=== PATIENT | female | born 1980 | race Caucasian/White ===

== ENCOUNTER 2022-09-15 14:27 | Day surgery (SDC) | payer MEDICARE ==
[2022-09-15] MEDS ORDERED: Decadron 4 MG INJ IV ONE (14:28)
[2022-09-15] MEDS ORDERED: LIDOCAINE HCL 1% 50 MG/5 ML VL PF IJ ONE (14:28)
[2022-09-15] MEDS ORDERED: Depo-Medrol 40 MG/ML IM ONE (14:28)
[2022-09-15] MEDS ORDERED: Sodium Chloride 0.9(Preservative Free) 10 ML IJ ONE (14:28)
[2022-09-15 14:45] LABS: HCG URINE TEST NEGATIVE (NEGATIVE)
[2022-09-15] MEDS ORDERED: Lactated Ringers 1,000 ML IV ONE (15:37)
[2022-09-15] MEDS ORDERED: DIPRIVAN 200 MG/20 ML IV ONE ×2 (15:39→15:51)
--- NOTE | 2022-09-15 16:42 | XRAY ---
Indication: Left piriformis injection. Intraoperative fluoroscopy provided for 8 seconds. Single digital spot image submitted for interpretation demonstrates posterior needle tip projecting over the left piriformis. Small amount of contrast injected for needle tip placement. Correlate with intraoperative findings/report.
--- NOTE | 2022-09-15 16:43 | XRAY ---
Indication: Left L4-S1 transforaminal RIDGE. Intraoperative fluoroscopy provided for 39 seconds. 4 digital spot image submitted for interpretation demonstrates posterior needle tips projecting over the expected left L4 and L5 nerve roots. Small amount of contrast injected for needle tip placement. Correlate with intraoperative findings/report.
--- NOTE | 2022-09-15 17:03 | XRAY ---
8 seconds of fluoroscopy was used in surgery for a left piriformis injection.
--- NOTE | 2022-09-15 17:03 | XRAY ---
39 seconds of fluoroscopy was used in surgery for a left L4-S1 transforaminal RIDGE.
== END 2022-09-15 16:10 | disposition home or self-care (01) ==
LOC: SDC-PAIN 14:27
PROVIDERS: ATTEND Psychiatry & Neurology Pain Medicine
DX: M54.16 Radiculopathy, lumbar region (principal); M79.18 Myalgia, other site; Z79.899 Other long term (current) drug therapy
CPT/HCPCS: 20552; 64483; 64484; 72100; 72170; 77002; 77003; 81025; J1030; J1100; J1642; J2001; J2704; Q9966

== ENCOUNTER 2023-01-04 11:41 | Day surgery (SDC) | payer MEDICARE ==
[2023-01-04] MEDS ORDERED: Depo-Medrol 40 MG/ML IM ONE (11:42)
[2023-01-04] MEDS ORDERED: Sodium Chloride 0.9(Preservative Free) 10 ML IJ ONE (11:42)
[2023-01-04 12:26] LABS: HCG URINE TEST NEGATIVE (NEGATIVE)
[2023-01-04] MEDS ORDERED: DIPRIVAN 200 MG/20 ML IV ONE (13:22)
[2023-01-04] MEDS ORDERED: Lactated Ringers 1,000 ML IV ONE (14:34)
--- NOTE | 2023-01-04 15:04 | XRAY ---
Indication: Left L4-S1 transforaminal RIDGE. Intraoperative fluoroscopy provided for 23 seconds. 4 digital spot image submitted for interpretation demonstrates posterior needle tips projecting over the expected left L4 and L5 nerve roots. Small amount of contrast injected for needle tip placement. Correlate with intraoperative findings/report.
--- NOTE | 2023-01-04 16:49 | XRAY ---
23 seconds of fluoroscopy was used in surgery for a left L4-S1 transforaminal RIDGE.
== END 2023-01-04 13:50 | disposition home or self-care (01) ==
LOC: SDC-PAIN 11:41
PROVIDERS: ATTEND Psychiatry & Neurology Pain Medicine
DX: M54.16 Radiculopathy, lumbar region (principal); Z79.899 Other long term (current) drug therapy
CPT/HCPCS: 64483; 64484; 72100; 77003; 81025; J1030; J1642; J2704; Q9966

== ENCOUNTER 2023-06-14 09:32 | Day surgery (SDC) | payer MEDICARE ==
[2023-06-14] MEDS ORDERED: Decadron 4 MG INJ IV ONE (09:33)
[2023-06-14] MEDS ORDERED: Sodium Chloride 0.9(Preservative Free) 10 ML IJ ONE (09:33)
[2023-06-14] MEDS ORDERED: LIDOCAINE HCL 1% 50 MG/5 ML VL PF IJ ONE (09:33)
[2023-06-14 10:26] LABS: HCG URINE TEST NEGATIVE (NEGATIVE)
[2023-06-14] MEDS ORDERED: DIPRIVAN 200 MG/20 ML IV ONE (11:47)
[2023-06-14] MEDS ORDERED: MORPHINE SULFATE 2 MG INJ ONE ×2 (12:36→12:48)
--- NOTE | 2023-06-14 12:59 | XRAY ---
Indication: Left piriformis injection Intraoperative fluoroscopy provided for 9 seconds. Single digital spot image submitted for interpretation demonstrates posterior needle tips projecting over the expected left piriformis. Small amount of contrast injected for needle tip placement. Correlate with intraoperative findings/report.
--- NOTE | 2023-06-14 12:59 | XRAY ---
Indication: Left L4-S1 transforaminal RIDGE Intraoperative fluoroscopy provided for 22 seconds. 4 digital spot image submitted for interpretation demonstrates posterior needle tips projecting over the expected left L4 and L5 nerve roots. Small amount of contrast injected for needle tip placement. Correlate with intraoperative findings/report.
--- NOTE | 2023-06-14 13:21 | XRAY ---
22 seconds of fluoroscopy was used in surgery for a left L4-S1 transforaminal RIDGE.
--- NOTE | 2023-06-14 13:21 | XRAY ---
9 seconds of fluoroscopy was used in surgery for a left piriformis injection.
[2023-06-14] MEDS ORDERED: Lactated Ringers 1,000 ML IV ONE (14:18)
== END 2023-06-14 13:00 | disposition home or self-care (01) ==
LOC: SDC-PAIN 09:32
PROVIDERS: ATTEND Psychiatry & Neurology Pain Medicine
DX: M54.16 Radiculopathy, lumbar region (principal); M79.18 Myalgia, other site
CPT/HCPCS: 20552; 64483; 64484; 72100; 72170; 77002; 77003; 81025; J1100; J1642; J2001; J2270; J2704; Q9966

== ENCOUNTER 2023-11-01 10:56 | Day surgery (SDC) | payer MEDICARE ==
[2023-11-01] MEDS ORDERED: Depo-Medrol 40 MG/ML IM ONE (10:57)
[2023-11-01] MEDS ORDERED: Decadron 4 MG INJ IV ONE (10:57)
[2023-11-01] MEDS ORDERED: Sodium Chloride 0.9(Preservative Free) 10 ML IJ ONE (10:57)
[2023-11-01 11:20] LABS: HCG URINE TEST NEGATIVE (NEGATIVE)
[2023-11-01] MEDS ORDERED: DIPRIVAN 200 MG/20 ML IV ONE (11:59)
[2023-11-01] MEDS ORDERED: MORPHINE SULFATE 2 MG INJ ONE ×2 (12:34→12:53)
[2023-11-01] MEDS ORDERED: Lactated Ringers 1,000 ML IV ONE (14:18)
--- NOTE | 2023-11-01 14:34 | XRAY ---
Indication: Left piriformis injection. Intraoperative fluoroscopy provided for 12 seconds. Single digital spot image submitted for interpretation demonstrates posterior needle tip projecting over the expected left piriformis. Small amount of contrast injected for needle tip placement. Correlate with intraoperative findings/report.
--- NOTE | 2023-11-01 14:36 | XRAY ---
Indication: Caudal RIDGE. Intraoperative fluoroscopy provided for 14 seconds. 3 digital spot image submitted for interpretation demonstrates caudal needle tip projecting mid sacrum. Small amount of contrast injected for needle tip placement. Correlate with intraoperative findings/report.
--- NOTE | 2023-11-01 14:38 | XRAY ---
14 seconds of fluoroscopy was used in surgery for a caudal RIDGE.
--- NOTE | 2023-11-01 14:38 | XRAY ---
12 seconds of fluoroscopy was used in surgery for a left piriformis injection.
== END 2023-11-01 13:43 ==
LOC: SDC-PAIN 10:56
PROVIDERS: ATTEND Psychiatry & Neurology Pain Medicine
DX: M54.16 Radiculopathy, lumbar region (principal); M79.18 Myalgia, other site
CPT/HCPCS: 20552; 62323; 72170; 72220; 77002; 77003; 81025; J1100; J1642; J2270; J2704; Q9966

== ENCOUNTER 2023-11-01 13:46 | Emergency (ER) | payer MEDICARE ==
--- NOTE | 2023-11-01 13:53 | ERPHSYRPT ---
- History of Present Illness Time Seen by Provider: 11/01/23 13:51 Historian: patient, family Exam Limitations: no limitations Physician History: This is a 43-year-old white female patient who was sent to the emergency department from outpatient surgery after the patient received a spinal injection. Patient, in recovery room, was complaining of sudden onset of epigastric and right upper quad abdominal pain and associated subxiphoid epigastric "bulge". Patient has had gastric bypass surgery and cholecystectomy in the past. She had ventral hernia repair with mesh in September 2023. She did states that she has been coughing quite a bit in the last month. Patient has no chest pain. She currently is not coughing and does not have any shortness of breath. The pain is described as sharp in the epigastric and right upper quadrant area and radiates around to her right back. In the emergency department, patient does not have much abdominal pain per her report. Patient has a history of anxiety, seizure disorder, and chronic low back pain. Timing/Duration: today Activities at Onset: none Abdominal Pain Onset Location: RUQ, epigastric Pain Radiation: back Severity of Pain-Max: moderate (Back) Severity of Pain-Current: none Modifying Factors: Improves With: nothing Associated Symptoms: denies symptoms Previous symptoms: same symptoms as today, no recent treatment Allergies/Adverse Reactions: Penicillins Allergy (Intermediate, Verified 11/01/23 14:06) Rash eszopiclone [From Lunesta] Adverse Reaction (Severe, Verified 11/01/23 14:06) hallucination quetiapine [From Seroquel] Adverse Reaction (Severe, Verified 11/01/23 14:06) hallucination doxycycline Adverse Reaction (Mild, Verified 11/01/23 14:06) Vomiting Home Medications: ALPRAZolam [Xanax Xr] 0.5 mg PO DAILY 11/01/23 [History] Lactulose [Constulose] 11/01/23 [History] Lamotrigine [Lamotrigine ER] 100 mg PO DAILY 11/01/23 [History] Rimegepant Sulfate [Nurtec Odt] 1 tab PO DAILY 11/01/23 [History] Topiramate 100 mg [Topamax 100 MG] 100 mg PO DAILY 11/01/23 [History] droNABinol [Dronabinol] 5 mg PO DAILY 11/01/23 [History] Travel Risk - International Travel Have you traveled outside of the country in past 3 weeks: No - Emerging Infectious Disease Are you exhibiting symptoms associated with any current EIDs: No - Review of Systems Constitutional: No Symptoms Eyes: No Symptoms Ears, Nose, & Throat: No Symptoms Respiratory: No Symptoms Cardiac: No Symptoms Abdominal/Gastrointestinal: Abdominal Pain (Epigastric and right upper quadrant) Genitourinary Symptoms: No Symptoms Musculoskeletal: No Symptoms Skin: No Symptoms Neurological: No Symptoms Psychological: No Symptoms Endocrine: No Symptoms Hematologic/Lymphatic: No Symptoms Immunological/Allergic: No Symptoms All Other Systems: Reviewed and Negative - Past Medical History Pertinent Past Medical History: Yes - Past Surgical History Past Surgical History: Yes - Nursing Vital Signs Nursing Vital Signs: Initial Vital Signs Temperature 97.5 F 11/01/23 13:57 Pulse Rate 90 11/01/23 13:57 Respiratory Rate 18 11/01/23 13:57 Blood Pressure 115/79 11/01/23 13:57 O2 Sat by Pulse Oximetry 98 11/01/23 13:57 Pain Scale Pain Intensity 0 - Physical Exam General Appearance: no apparent distress, alert, anxiety Eye Exam: PERRL/EOMI, eyes nml inspection Ears, Nose, Throat Exam: normal ENT inspection, moist mucous membranes Neck Exam: normal inspection, non-tender, supple, full range of motion Respiratory Exam: normal breath sounds, lungs clear, airway intact, No chest tenderness, No respiratory distress Cardiovascular Exam: regular rate/rhythm, normal heart sounds, normal peripheral pulses Gastrointestinal/Abdomen Exam: soft, normal bowel sounds, hernia (Reducible epigastric/ventral hernia.), No tenderness Pelvic Exam: not done Rectal Exam: not done Back Exam: normal inspection, normal range of motion, No CVA tenderness, No vertebral tenderness Extremity Exam: normal inspection, normal range of motion, pelvis stable Neurologic Exam: alert, oriented x 3, cooperative, prefinish operator II-XII nml as tested, nml cerebellar function, nml station & gait, sensation nml Skin Exam: normal color, warm, dry Lymphatic Exam: No adenopathy SpO2 Interpretation: normal O2 Delivery: Room Air - Course Nursing assessment & vital signs reviewed: Yes Ordered Tests: Active Orders 24 hr Category Date Time Status ABDOMEN AND PELVIS W/0 CONTRAS [CT] Stat Exams 11/01/23 14:45 Completed AMYLASE Stat Lab 11/01/23 14:45 Completed CBC W DIFF Stat Lab 11/01/23 14:45 Completed CMP Stat Lab 11/01/23 14:45 Completed LIPASE Stat Lab 11/01/23 14:45 Completed Lab/Rad Data: Laboratory Result Diagrams 11/01/23 14:45 11/01/23 14:45 Laboratory Results 11/01/23 11/01/23 Range/Units 14:45 14:45 WBC 6.1 (3.98-10.04) x10^3/uL RBC 4.49 (3.93-5.22) x10^6/uL Hgb 12.9 (11.2-15.7) g/dL Hct 39.9 (34.1-44.9) % MCV 88.9 (79.4-94.8) fL MCH 28.7 (25.6-32.2) pg MCHC 32.3 (32.2-35.5) g/dL RDW 13.6 (11.7-14.4) % Plt Count 275 (182-369) x10^3/uL MPV 9.4 (9.4-12.3) fL Gran % 70.7 (34.0-71.1) % Immature Gran % (Auto) 0.5 H (0.001-0.429) % Nucleat RBC Rel Count 0.0 (0.00-0.2) % Eos # (Auto) 0.12 (0.04-0.36) x10^3/uL Immature Gran # (Auto) 0.03 (0.001-0.031) x10^3u/L Absolute Lymphs (auto) 1.53 (1.18-3.74) x10^3/uL Absolute Monos (auto) 0.10 L (0.24-0.86) x10^3/uL Absolute Nucleated RBC 0.00 (0.00-0.012) x10^3u/L Lymphocytes % 25.0 (19.3-51.7) % Monocytes % 1.6 L (4.7-12.5) % Eosinophils % 2.0 (0.7-5.8) % Basophils % 0.2 (0.1-1.2) % Absolute Granulocytes 4.33 (1.56-6.13) x10^3/uL Basophils # 0.01 (0.01-0.08) x10^3/uL Sodium 134 L (135-145) mmol/L Potassium 4.1 (3.5-5.1) mmol/L Chloride 102 (98-107) mmol/L Carbon Dioxide 28 (22-30) mmol/L Anion Gap 8.8 (5-15) MEQ/L BUN 19 H (7-17) mg/dL Creatinine 0.97 (0.52-1.04) mg/dL Estimated GFR 73.9 ML/MIN Glucose 108 H (74-106) mg/dL Calcium 8.8 (8.4-10.2) mg/dL Total Bilirubin 0.40 (0.2-1.3) mg/dL AST 104 H (14-36) U/L ALT 55 H (0-35) U/L Alkaline Phosphatase 108 (38-126) U/L Serum Total Protein 6.2 L (6.3-8.2) g/dL Albumin 3.8 (3.5-5.0) g/dL Amylase 76 (30-110) U/L Lipase 79 (23-300) U/L - Progress Progress: improved, re-examined Progress Note: 11/01/23 15:22 My medical decision making and the assignment of moderate complexity to this patient's medical issue today is based on review of the patient's past medical history, review of the patient's medication list, review patient drug allergy list, history present illness and physical findings on examination. The workup in this patient includes CBC, CMP, amylase and lipase levels. In addition we will order a CT scan of the abdomen pelvis without contrast. Differential diagnosis includes but is not limited to ventral hernia, muscle skeletal pain, colitis, pancreatitis 11/01/23 15:25 I interpreted the patient's laboratory data results. Based on the laboratory data results, the patient does not have any acute, emergent medical issue. The CT scan of the abdomen pelvis was interpreted by the radiologist and I reviewed the impression. The impression states markedly diffuse colonic fecal stasis and colonic distention. Sacral epidural air bubbles consistent with same-day caudal epidural injection. No free air. No free fluid. There is no evidence of gastrointestinal obstruction. Counseled pt/family regarding: lab results, diagnosis, need for follow-up, rad results Medical Desision Making - Independent Historian Additional History obtained from: Mother - Diagnostic Testing Diagnostic test were ordered, analyzed, and reviewed by me: Yes Radiological Interpretation: Reviewed by me, Teleradiologist Report - Risk of complications Low Risk: Low risk of morbidity from additional dx testing or treatment - Departure Departure Disposition: Home Clinical Impression: Ventral hernia, Constipation Condition: Stable Critical Care Time: No Referrals: TAHIR MARR, [employer] [Primary Care Provider] - Follow up/PCP as directed Additional Instructions: Continue your outpatient pain control regimen. Use [id number] MiraLAX and/or milk of magnesia to help with fecal stasis. If needed, use a fleets enema or glycerin suppository to help stimulate your bowels to move. Decrease your diet to a clear liquid diet and advance your diet slowly over the next 16 to 24 hours. Call your primary care provider today, 11/01/2023, to make arranges for follow-up appointment for further evaluation and management. Call your surgeon today, 11/01/2023, to have him reexamine you for possible recurrent or new ventral hernia.
[2023-11-01 14:05] VITALS: TEMP 97.5
[2023-11-01 14:53] LABS: Absolute Neutrophil Ct (ANC) 4.33 x10^3/uL (1.56-6.13); BASOPHIL % 0.2 % (0.1-1.2); Basophil (Absolute #) 0.01 x10^3/uL (0.01-0.08); Eosinophil (Absolute #) 0.12 x10^3/uL (0.04-0.36); Hematocrit 39.9 % (34.1-44.9); Hemoglobin 12.9 g/dL (11.2-15.7); IMMATURE GRAN # 0.03 x10^3u/L (0.001-0.031); IMMATURE GRAN % 0.5 % (0.001-0.429); Lymphocyte (Absolute #) 1.53 x10^3/uL (1.18-3.74); Mean Cell Volume 88.9 fL (79.4-94.8); Mean Corpuscular Hemoglobin 28.7 pg (25.6-32.2); Mean Corpuscular Hgb Concent. 32.3 g/dL (32.2-35.5); Mean Platelet Volume 9.4 fL (9.4-12.3); Monocytes % 1.6 % (4.7-12.5); Neutrophil % 70.7 % (34.0-71.1); Platelet Count 275 x10^3/uL (182-369); Red Blood Count 4.49 x10^6/uL (3.93-5.22); Red Cell Distribution Width 13.6 % (11.7-14.4); White Blood Count 6.1 x10^3/uL (3.98-10.04)
[2023-11-01 15:05] LABS: ALBUMIN 3.8 g/dL (3.5-5.0); ANION GAP 8.8 MEQ/L (5-15); BILIRUBIN,TOTAL 0.4 mg/dL (0.2-1.3); Calcium 8.8 mg/dL (8.4-10.2); Creatinine 1 0.97 mg/dL (0.52-1.04); EST GLOMERULAR FILTRATION RATE 73.9 ML/MIN; Potassium 4.1 mmol/L (3.5-5.1); Total Protein 6.2 g/dL (6.3-8.2)
--- NOTE | 2023-11-01 15:18 | XRAY ---
Indication: Abdominal pain. Status post left piriformis injection and caudal RIDGE. Multiple contiguous axial images obtained through the abdomen pelvis without contrast. Comparison: None Lung bases demonstrates minimal dependent atelectasis. Heart not enlarged. Small hiatal hernia. Previous gastric bypass surgery and cholecystectomy. Noncontrasted stomach and bowel loops appear nonobstructed. Marked diffuse colonic fecal debris throughout with colonic distention up to 5.5 cm. Uterus demonstrates IUD in situ. Urinary bladder demonstrates minimal intraluminal contrast in the dependent portion, left greater than right. No contrast seen in upper system. No free fluid/air. Remaining liver, pancreas, spleen, adrenal glands, kidneys, ureters, bladder, uterus, and aorta are unremarkable for noncontrast exam. Osseous structures intact. Sacrum demonstrates incidental epidural bubbles presumed from caudal RIDGE performed earlier in the day. Impression: 1. Markedly diffuse colonic fecal stasis with colonic distention. 2. Sacral epidural air bubbles presumed related to same-day caudal RIDGE. 3. Minimal intraluminal contrast in urinary bladder of uncertain etiology.
[2023-11-01 15:32] VITALS: BP 106/75; PULSE 87; RESP 15; O2SAT 97
== END 2023-11-01 15:45 | disposition home or self-care (01) ==
LOC: ED 13:46
DX: K43.9 Ventral hernia without obstruction or gangrene (principal); K59.00 Constipation, unspecified; R10.13 Epigastric pain; R10.11 Right upper quadrant pain; Z79.899 Other long term (current) drug therapy
CPT/HCPCS: 36000; 36415; 74176; 80053; 82150; 83690; 85025; 99284

== ENCOUNTER 2024-05-22 12:44 | Day surgery (SDC) | payer MEDICARE ==
[2024-05-22] MEDS ORDERED: Depo-Medrol 40 MG/ML IM ONE (12:45)
[2024-05-22] MEDS ORDERED: Sodium Chloride 0.9(Preservative Free) 10 ML IJ ONE (12:45)
[2024-05-22] MEDS ORDERED: LIDOCAINE HCL 1% AMPUL 5 ML IJ ONE (12:45)
[2024-05-22] MEDS ORDERED: dexAMETHasone sodium phosphate IJ ONE (12:45)
[2024-05-22 13:05] LABS: HCG URINE TEST NEGATIVE (NEGATIVE)
[2024-05-22] MEDS ORDERED: Versed 2 MG/2 ML Injection ONE (13:16)
[2024-05-22] MEDS ORDERED: propofoL IV ONE (13:50)
[2024-05-22] MEDS ORDERED: MORPHINE SULFATE 2 MG INJ ONE (14:43)
[2024-05-22] MEDS ORDERED: DILAUDID 0.5 MG/0.5 ML SYRINGE IV ONE (15:15)
--- NOTE | 2024-05-22 15:20 | XRAY ---
Indication: Caudal RIDGE. Intraoperative fluoroscopy provided for 12 seconds. 3 digital spot image submitted for interpretation demonstrates caudal needle tip projecting mid sacrum. Small amount of contrast injected for needle tip placement. Correlate with intraoperative findings/report. Incidental IUD.
--- NOTE | 2024-05-22 15:20 | XRAY ---
Indication: Right piriformis injection. Intraoperative fluoroscopy provided for 5 seconds. Single digital spot image submitted for interpretation demonstrates posterior needle tip projecting over right piriformis. Small amount of contrast injected for needle tip placement. Correlate with intraoperative findings/report.
--- NOTE | 2024-05-22 16:36 | XRAY ---
12 seconds of fluoroscopy was used in surgery for a caudal RIDGE.
--- NOTE | 2024-05-22 16:37 | XRAY ---
5 seconds of fluoroscopy was used in surgery for a right piriformis injection.
== END 2024-05-22 16:00 | disposition home or self-care (01) ==
LOC: SDC-PAIN 12:44
PROVIDERS: ATTEND Psychiatry & Neurology Pain Medicine
DX: M54.16 Radiculopathy, lumbar region (principal); M79.18 Myalgia, other site
CPT/HCPCS: 20552; 62323; 72170; 72220; 77002; 81025; J1100; J1171; J1642; J2250; J2270; J2704; Q9966

== ENCOUNTER 2024-11-20 11:38 | Day surgery (SDC) | payer MEDICARE ==
[2024-11-20 11:49] LABS: HCG URINE TEST NEGATIVE (NEGATIVE)
[2024-11-20] MEDS ORDERED: propofoL IV ONE (13:19)
[2024-11-20] MEDS ORDERED: MORPHINE SULFATE 2 MG INJ ONE (13:54)
--- NOTE | 2024-11-20 14:23 | XRAY ---
Indication: Caudal RIDGE. Intraoperative fluoroscopy provided for 15 seconds. 2 digital spot images submitted for interpretation demonstrates caudal needle tip projecting mid sacrum. Small amount of contrast injected for needle tip placement. Correlate with intraoperative findings/report.
--- NOTE | 2024-11-20 14:25 | XRAY ---
15 seconds of fluoroscopy used in surgery for a caudal RIDGE.
[2024-11-20] MEDS ORDERED: DILAUDID 0.5 MG/0.5 ML SYRINGE ONE (14:30)
[2024-11-20] MEDS ORDERED: Lactated Ringers 1,000 ML IV ONE (15:18)
== END 2024-11-20 15:23 | disposition home or self-care (01) ==
LOC: SDC-PAIN 11:38
PROVIDERS: ATTEND Psychiatry & Neurology Pain Medicine
DX: M54.16 Radiculopathy, lumbar region (principal)

== ENCOUNTER 2025-01-01 10:34 | Day surgery (SDC) | payer MEDICARE ==
[2025-01-01] MEDS ORDERED: LIDOCAINE HCL 1% 50 MG/5 ML VL IJ ONE (10:35)
[2025-01-01 10:54] LABS: HCG URINE TEST NEGATIVE (NEGATIVE)
[2025-01-01] MEDS ORDERED: Lactated Ringers 1,000 ML IV ONE (11:30)
[2025-01-01] MEDS ORDERED: propofoL IV ONE (12:17)
--- NOTE | 2025-01-01 13:56 | XRAY ---
Indication: Left piriformis injection. Intraoperative fluoroscopy provided for 18 seconds. 2 digital spot image submitted for interpretation demonstrates posterior needle tip projecting over left piriformis. Small amount of contrast injected for needle tip placement. Correlate with intraoperative findings/report.
--- NOTE | 2025-01-01 14:53 | XRAY ---
18 seconds of fluoroscopy was used in surgery for a left piriformis injection.
== END 2025-01-01 12:58 | disposition home or self-care (01) ==
LOC: SDC-PAIN 10:34 → EDSTATUS 13:34
PROVIDERS: ATTEND Psychiatry & Neurology Pain Medicine
DX: M79.18 Myalgia, other site (principal)